=== PATIENT | female | born 1985 | race Caucasian/White ===

== ENCOUNTER 2016-04-19 11:59 | Emergency (ER) | payer MEDICAID ==
[~2016-04-19] VITALS: Ht 152.4 cm; Wt 61.0 kg
[2016-04-19 12:13] VITALS: Ht 152.4 cm; Wt 61.0 kg
--- NOTE | 2016-04-19 13:28 | RADRPT ---
PROCEDURE: OBSTETRICAL ULTRASOUND WITH ENDOVAGINAL IMAGES CLINICAL INDICATION: Vaginal Bleed () TECHNIQUE: Multiple sonographic images of the pelvis were obtained utilizing a transabdominal and endovaginal technique. The images were reviewed on a PACS workstation. COMPARISON: None. LMP: 03/09/2016 Gestational age by LMP: 5 weeks, 6 days Estimated date of delivery by LMP: 12/14/2016 FINDINGS: The uterus measures 10.8 x 4.0 x 5.4 cm. There is thickening of the endometrium to 21 mm. Trace en docervical fluid is noted. There is no evidence of an intrauterine . The right ovary is not visualized. The left ovary measures 3.5 x 1.5 x 2.1 cm. There is normal vascu lar flow in the left ovary No significant ovarian lesions are seen. No significant pelvic free fluid is identified. IMPRESSION: Marked thickening of the endometrium without evidence of an intrauterine . Findings are l ikely due to an early intrauterine although an ectopic cannot be entirely exclud ed. Short-term follow-up ultrasound and serial Beta HCG measurements are recommended for further ev aluation. The left ovary and bilateral adnexa are unremarkable. Nonvisualization of the right ovary. RPTAT: EE Physician Quinten Date Time Electronically viewed and signed by Physician Quinten on 04/19/2016 13:28 JUAN FRANCISCO
[2016-04-19 13:43] LABS: ADD UMIC YES; BASOPHIL # 0.1 10^3/ul (0.0-0.1); EOSINOPHILS # 0.5 10^3/ul (0.0-0.5); HEMATOCRIT 41.7 % (37.0-47.0); HEMOGLOBIN 13.7 g/dl (12.0-16.0); LYMPHOCYTES # 2.5 10^3/ul (0.8-2.9); LYMPHOCYTES % 30.7 % (15.0-51.0); MEAN CORPUSCULAR HEMOGLOBIN 27.9 pg (29.0-33.0); MEAN CORPUSCULAR HGB CONC 32.8 g/dl (32.0-37.0); MEAN CORPUSCULAR VOLUME 85.1 fl (82.0-101.0); MONOCYTE # 0.6 10^3/ul (0.3-0.9); MONOCYTES % 6.9 % (0.0-11.0); NEUTROPHIL # 4.5 10^3/ul (1.6-7.5); NEUTROPHILS % 55.4 % (39.0-77.0); PLATELET COUNT 230 10^3/UL (140-440); RED CELL DISTRIBUTION WIDTH 13.3 % (11.5-14.5); UNCORRECTED WBC 8.1 10^3/ul (4.8-10.8); URINE BILIRUBIN (Dip) NEGATIVE (NEGATIVE); URINE BLOOD (Dip) 3+ (NEGATIVE); URINE COLOR RED (YELLOW); URINE GLUCOSE (Dip) NEGATIVE (NEGATIVE); URINE KETONES (Dip) NEGATIVE (NEGATIVE); URINE LEUKOCYTE ESTERASE (Dip) 2+ (NEGATIVE); URINE NITRITE (Dip) NEGATIVE (NEGATIVE); URINE TOTAL PROTEIN (Dip) 4+ (NEGATIVE); URINE UROBILINOGEN (Dip) 1.0 E.U./dL (0.1-1.0); WHITE BLOOD COUNT 8.1 10^3/ul (4.8-10.8)
[2016-04-19 13:46] LABS: CONDITION 1
[2016-04-19 14:19] LABS: BACTERIA,URINE FEW; SQUAMOUS EPITHELIAL CELL,UR FEW; URINE RBCS >200 /HPF (0)
[2016-04-19 14:20] LABS: MUCUS,URINE FEW
[2016-04-19] MEDS ORDERED: CEPH-443 PO (14:27)
--- NOTE | 2016-04-19 15:32 | ERD ---
DATE OF SERVICE: 04/19/2016 CHIEF COMPLAINT: Vaginal bleeding since this morning. HISTORY OF PRESENT ILLNESS: Patient is having no clotting. She is having some mild diffuse crampin g. G4, P2, A1. She was seen at [facility]. Her OB is Dr. Tucker. Her last normal menstrual period was 03/09/2016. PAST MEDICAL HISTORY: Denies medical problems. ALLERGIES: TO MEDICATIONS DENIES. HOSPITALIZATIONS: Denies. IMMUNIZATIONS: Up to date on vaccinations. SOCIAL HISTORY: Denies. REVIEW OF SYSTEMS: A 12-point review of systems was done. Refer to HPI for positives, all other sy stems negative. PHYSICAL EXAMINATION VITAL SIGNS: Temperature is 98.2, pulse 65, blood pressure is 100/58, respiratory 14, O2 saturation 100% on room air. Pain intensity 3/10. GENERAL: The patient is well-appearing, well-nourished, no acute distress. HEENT: Atraumatic. Conjunctivae are pink. Pupils equal, round, and reactive to light. There is no s cleral icterus. Tympanic membranes clear bilaterally. Oropharynx clear. No nystagmus or photophobia . CHEST: Clear to auscultation bilaterally. There are no rales, wheezes or rhonchi. HEART: Regular rate and rhythm. No murmurs, clicks, rubs or gallops. No S3 or S4. ABDOMEN: Soft, nontender and nondistended. Good bowel sounds. No rebound or guarding. No gross loretta tonitis. No gross organomegaly or masses. No Rebolledo sign or McBurney point tenderness. SKIN: There is no apparent rash or petechia. The skin is warm and dry. EMERGENCY ROOM COURSE: The patient had blood work done in the ER. CBC was within normal limits. B eta quant level of 49.2. Patient's urine showed 2+ leukocytes with 2 to 5 white blood cells and 3+ hemoglobin. Patient's blood type is O positive. Ultrasound showed marked thickening of the endomet rium without evidence of IUP. Findings are likely due to intrauterine , although ectopic p regnancy cannot entirely be excluded. Short term followup and serial beta hCG measurements are ellie mmended for further evaluation. Left ovary and bilateral adnexa are unremarkable, nonvisualization of the right ovary. DIAGNOSES: 1. Vaginal bleeding. 2. Threatened . 3. Urinary tract infection. MEDICAL DECISION MAKING: I have low suspicion for ectopic . The patient does not laterali ze pain. Beta quant level is significantly low and patient is currently having vaginal bleeding whi ch is likely associated with miscarriage. The patient is Rh positive and does not require RhoGAM in jection. DISCHARGE: The patient is discharged stable. I have low suspicion for pyelo. Patient's hemoglobin is stable. The patient is discharged stable. Patient given a prescription for Keflex and told to follow up with primary care in ____ or if worsens, return to the ER. All other questions answered at time of discharge. Discharge summary given at the time of departure. Patient understood and com plied with plan. Dictated By: LUI GUZMÁN DO EH/NTS Conf#: [id number] DID#: [id number]
== END 2016-04-19 14:40 | disposition home or self-care (01) ==
LOC: FTE 11:59
DX: O20.9 Hemorrhage in early pregnancy, unspecified (principal); O20.0 Threatened abortion; O23.41 Unspecified infection of urinary tract in pregnancy, first trimester; Z3A.01 Less than 8 weeks gestation of pregnancy
CPT/HCPCS: 36415; 76801; 76817; 81001; 84702; 85025; 86900; 86901; Z7502; 81003